=== PATIENT | female | born 1985 ===

== ENCOUNTER → 2018-04-14 | Outpatient (REF) ==
--- NOTE | 2018-04-14 15:23 | RADIOLOGY IMAGING REPORT ---
FACILITY: [facility] [place] PATIENT NAME: Heidi Fabian : 1985 MR: [id number] V: [id number] EXAM DATE: ORDERING PHYSICIAN: CECY DUMONT TECHNOLOGIST: Location: [facility] Patient: Heidi Fabian : 1985 Visit/Account:[id number] Date of Sevice: 04/14/2018 Pelvic ultrasound HISTORY: Ovarian cyst. COMPARISON: None available. Findings: Standard transabdominal and transvaginal pelvic ultrasound with color flow and spectral madisyn lysis. Uterus: Uterus measurement: 8.6 x 4.6 x 3.9 cm Endometrium measurement: 6 mm No suspicious mass. Adnexa: Right ovary: 3.3 x 2.9 x 2.2 cm Left ovary: 2.4 x 2.1 x 1.6 cm No suspicious mass. Normal blood flow. A few small follicles and/or simple cysts. Mildly distended adnexal vessels. Free fluid: None Urinary bladder: Empty IMPRESSION: 1. No suspicious mass. 2. Mildly distended adnexal vessels. This can be seen with pelvic congestion syndrome. Report Dictated By: Kris Diaz MD at 04/14/2018 3:15 PM Report E-Signed By: Kris Diaz MD at 04/14/2018 3:18 PM WSN:[id number]
== END ==
LOC: US 10:41
PROVIDERS: ATTEND Family Medicine
DX: N83.209 Unspecified ovarian cyst, unspecified side (principal)
CPT/HCPCS: 76856